=== PATIENT | male | born 1960 | race Caucasian/White ===

== ENCOUNTER 2020-10-09 06:29 | Outpatient (REF) | payer BC, SELFPAY ==
[2020-10-09 07:22] LABS: MANUAL DIFF FLAG NO
[2020-10-09 07:25] LABS: Basophils Absolute Auto 0.1 X10*3/uL (0.0-0.2); Basophils Percent Auto 0.8 % (0-2); Eosinophils Absolute Auto 0.3 X10*3/uL (0.0-0.4); Eosinophils Percent Auto 4.1 % (0-4); Hematocrit 44.9 % (42-52); Hemoglobin 15.1 g/dl (14.0-18.0); Imm Gran Abs Auto 0.02 X10*3/uL (0.00-0.03); Imm Gran Pct Auto 0.3 % (0.0-0.4); Lymphocytes Absolute Auto 2.6 X10*3/uL (1.2-4.9); Lymphocytes Percent Auto 40.6 % (20-40); Mean Corpuscular HGB Conc 33.6 g/dl (31.0-36.0); Mean Corpuscular Hemoglobin 31.4 pg (27.0-33.0); Mean Corpuscular Volume 93.3 fL (80-98); Mean Platelet Volume 10.2 fL (9.4-12.4); Monocytes Absolute Auto 0.4 X10*3/uL (0.1-1.2); Monocytes Percent Auto 5.9 % (2-11); Neutrophils Absolute Auto 3.1 X10*3/uL (2.0-8.3); Neutrophils Percent Auto 48.3 % (45-73); Platelet Count 182 X10*3/uL (160-400); Red Blood Count 4.81 X10*6/uL (4.60-5.80); Red Cell Distribution Width 12.6 % (11.0-16.0); White Blood Count 6.4 X10*3/uL (4.8-10.8)
[2020-10-09 07:53] LABS: Alanine Aminotransferase 31 U/L (0-40); Albumin Level 4.2 g/dL (3.5-5.0); Alkaline Phosphatase 58 U/L (39-117); Anion Gap 12 (12-20); Aspartate Amino Transferase 29 U/L (5-37); Bilirubin Total 1.4 mg/dL (0.0-1.0); Blood Urea Nitrogen 13 mg/dL (9-16); Calcium 8.7 mg/dL (8.4-10.2); Carbon Dioxide 26 mmol/L (22-29); Chloride 107 mmol/L (96-108); Cholesterol 116 mg/dL; Estimated Glomerular Filt Rate > 60; Glucose Fasting 90 mg/dL (60-99); HDL Cholesterol 39 mg/dL; LDL Cholesterol Calculated 55 mg/dl; Potassium 3.9 mmol/l (3.3-5.1); Sodium 141 mmol/L (135-145); Total Protein 6.5 g/dL (6.5-8.0); Triglycerides 111 mg/dL
[2020-10-09 08:14] LABS: Thyroid Stimulating Hormone 2.72 uIU/mL (0.32-4.0)
== END 2020-10-09 06:30 | disposition home or self-care (01) ==
LOC: HO.LAB 06:29
PROVIDERS: Visit Provider Internal Medicine
DX: R59.1 Generalized enlarged lymph nodes (principal); I25.10 Atherosclerotic heart disease of native coronary artery without angina pectoris; E78.00 Pure hypercholesterolemia, unspecified
CPT/HCPCS: 36415; 80053; 80061; 84443; 85025

== ENCOUNTER 2020-12-06 09:10 | Outpatient (REF) | payer BC, SELFPAY ==
--- NOTE | 2020-12-06 | US_ITS ---
EXAMINATION: MM DIAGNOSTIC DIGITAL BREAST TOMOSYNTHESIS, BILATERAL US BREAST, BILATERAL CLINICAL INFORMATION: Bilateral axillary swelling. COMPARISON: Mammography: None. TECHNIQUE: Digital breast tomosynthesis is performed in both the craniocaudal and mediolateral oblique views along with computer-aided detection (CAD). Synthesized 2D images are generated from the tomosynthesis. Ultrasound of the breasts is performed with real-time bill-scale imaging and color Doppler. FINDINGS: The breasts are almost entirely fatty (ACR BI-RADS breast composition Category a). There are no significant masses, abnormal calcifications, or other abnormalities. Bilateral targeted axillary ultrasound performed. No abnormal cystic or solid mass identified. No region of abnormal distal sound shadowing. Results are discussed with the patient at time of visit. US/US breast LT limited IMPRESSION: No specific mammographic or ultrasound findings to suggest malignancy. ASSESSMENT: BI-RADS 1: Negative. RECOMMENDATION: Clinical followup.
--- NOTE | 2020-12-06 | US_ITS ---
EXAMINATION: MM DIAGNOSTIC DIGITAL BREAST TOMOSYNTHESIS, BILATERAL US BREAST, BILATERAL CLINICAL INFORMATION: Bilateral axillary swelling. COMPARISON: Mammography: None. TECHNIQUE: Digital breast tomosynthesis is performed in both the craniocaudal and mediolateral oblique views along with computer-aided detection (CAD). Synthesized 2D images are generated from the tomosynthesis. Ultrasound of the breasts is performed with real-time bill-scale imaging and color Doppler. FINDINGS: The breasts are almost entirely fatty (ACR BI-RADS breast composition Category a). There are no significant masses, abnormal calcifications, or other abnormalities. Bilateral targeted axillary ultrasound performed. No abnormal cystic or solid mass identified. No region of abnormal distal sound shadowing. Results are discussed with the patient at time of visit. US/US breast RT limited IMPRESSION: No specific mammographic or ultrasound findings to suggest malignancy. ASSESSMENT: BI-RADS 1: Negative. RECOMMENDATION: Clinical followup.
--- NOTE | 2020-12-06 09:13 | MM_ITS ---
EXAMINATION: MM DIAGNOSTIC DIGITAL BREAST TOMOSYNTHESIS, BILATERAL US BREAST, BILATERAL CLINICAL INFORMATION: Bilateral axillary swelling. COMPARISON: Mammography: None. TECHNIQUE: Digital breast tomosynthesis is performed in both the craniocaudal and mediolateral oblique views along with computer-aided detection (CAD). Synthesized 2D images are generated from the tomosynthesis. Ultrasound of the breasts is performed with real-time bill-scale imaging and color Doppler. FINDINGS: The breasts are almost entirely fatty (ACR BI-RADS breast composition Category a). There are no significant masses, abnormal calcifications, or other abnormalities. Bilateral targeted axillary ultrasound performed. No abnormal cystic or solid mass identified. No region of abnormal distal sound shadowing. Results are discussed with the patient at time of visit. MM/MM tomosynthesis diagnostic BI IMPRESSION: No specific mammographic or ultrasound findings to suggest malignancy. ASSESSMENT: BI-RADS 1: Negative. RECOMMENDATION: Clinical followup.
== END 2020-12-06 09:11 | disposition home or self-care (01) ==
LOC: HO.MAMMO 09:10
PROVIDERS: PCP Internal Medicine; Visit Provider Internal Medicine
DX: M79.89 Other specified soft tissue disorders (principal)
CPT/HCPCS: 76642; 77062; 77066

== ENCOUNTER 2021-09-13 06:49 | Outpatient (REF) | payer BC, SELFPAY ==
[2021-09-13 06:55] LABS: MANUAL DIFF FLAG NO
[2021-09-13 07:36] LABS: Basophils Percent Auto 0.6 % (0-2); Eosinophils Absolute Auto 0.3 X10*3/uL (0.0-0.4); Eosinophils Percent Auto 4.1 % (0-4); Hemoglobin 15.9 g/dl (14.0-18.0); Imm Gran Abs Auto 0.04 X10*3/uL (0.00-0.03); Imm Gran Pct Auto 0.6 % (0.0-0.4); Lymphocytes Absolute Auto 2.9 X10*3/uL (1.2-4.9); Lymphocytes Percent Auto 40.1 % (20-40); Mean Corpuscular HGB Conc 33.8 g/dl (31.0-36.0); Mean Corpuscular Hemoglobin 31.7 pg (27.0-33.0); Mean Corpuscular Volume 93.8 fL (80-98); Mean Platelet Volume 10.1 fL (9.4-12.4); Monocytes Absolute Auto 0.4 X10*3/uL (0.1-1.2); Monocytes Percent Auto 5.3 % (2-11); Neutrophils Absolute Auto 3.5 X10*3/uL (2.0-8.3); Neutrophils Percent Auto 49.3 % (45-73); Platelet Count 199 X10*3/uL (160-400); Red Blood Count 5.01 X10*6/uL (4.60-5.80); Red Cell Distribution Width 12.9 % (11.0-16.0); White Blood Count 7.1 X10*3/uL (4.8-10.8)
[2021-09-13 08:03] LABS: Alanine Aminotransferase 32 U/L (0-40); Albumin Level 4.2 g/dL (3.5-5.0); Alkaline Phosphatase 65 U/L (39-117); Anion Gap 10 (12-20); Aspartate Amino Transferase 27 U/L (5-37); Bilirubin Total 1.3 mg/dL (0.0-1.0); Blood Urea Nitrogen 11 mg/dL (9-16); Calcium 9.2 mg/dL (8.4-10.2); Carbon Dioxide 29 mmol/L (22-29); Chloride 108 mmol/L (96-108); Cholesterol 135 mg/dL; Estimated Glomerular Filt Rate > 60; Glucose Fasting 105 mg/dL (60-99); HDL Cholesterol 42 mg/dL; LDL Cholesterol Calculated 66 mg/dl; Potassium 4.4 mmol/L (3.3-5.1); Sodium 143 mmol/L (135-145); Total Protein 6.6 g/dL (6.5-8.0); Triglycerides 137 mg/dL
[2021-09-13 08:30] LABS: Thyroid Stimulating Hormone 3.55 uIU/mL (0.32-4.0)
== END 2021-09-13 06:50 | disposition home or self-care (01) ==
LOC: HO.LAB 06:49
PROVIDERS: PCP Internal Medicine; Visit Provider Internal Medicine
DX: Z00.00 Encounter for general adult medical examination without abnormal findings (principal); Z12.5 Encounter for screening for malignant neoplasm of prostate; I25.10 Atherosclerotic heart disease of native coronary artery without angina pectoris; E78.00 Pure hypercholesterolemia, unspecified; N20.0 Calculus of kidney
CPT/HCPCS: 36415; 80053; 80061; 81003; 82306; 84153; 84154; 84443; 85025

== ENCOUNTER 2022-02-05 11:10 | Emergency (ER) | payer BC, SELFPAY ==
--- NOTE | ~2022-02-05 | XR_ITS ---
EXAMINATION: XR CHEST CLINICAL INFORMATION: Cough and Covid positive COMPARISON: Chest CT 05/14/2020. TECHNIQUE: Frontal view of the chest was obtained. FINDINGS: No significant abnormality is noted involving the heart, lungs, mediastinum, bony thorax or soft tissues. XR/XR chest 1V IMPRESSION: Unremarkable chest examination.
[2022-02-05 11:15] VITALS: BP 131/74; PULSE 56; RESP 19; TEMP 36.9; O2SAT 96; BMI 27.3
[2022-02-05 11:18] VITALS: BP 143/72; PULSE 53; RESP 19; TEMP 36.6; O2SAT 98
--- NOTE | 2022-02-05 11:31 | ED.GENADULT ---
HPI - General Adult General Chief complaint: Dyspnea Stated complaint: COVID+/SOB Time Seen by Provider: 02/05/22 11:31 Source: patient Mode of arrival: ambulatory Limitations: no limitations History of Present Illness HPI narrative: Sick starting Thursday with sore throat now intermittent cough, antigen test at home positive for COVID, now with chest tightness Onset (ago): day(s) Location: chest Radiation: non-radiation Severity: mild Quality: other (tightness) Pain Consistency: intermittent Exacerbating factors: none Associated symptoms: cough, fever/chills and other (sore throat) Related Data Home Medications Medication Instructions Recorded Confirmed aspirin 81 mg tablet 81 mg PO DAILY 11/02/20 11/02/20 atorvastatin 80 mg tablet (Lipitor) 80 mg PO DAILY 11/02/20 11/02/20 ezetimibe 10 mg tablet 1 tab PO DAILY 11/02/20 11/02/20 metoprolol succinate 100 mg 1 tab PO DAILY 11/02/20 11/02/20 tablet,extended release 24 hr omega-3 fatty acids-vitamin E cap 11/02/20 1,000 mg capsule Allergies Allergy/AdvReac Type Severity Reaction Status Date / Time Penicillins [PENICILLINS] Allergy Intermediate RASH Verified 12/04/20 08:48 PCN Allergy Unknown rash Uncoded 12/04/20 08:48 Review of Systems Constitutional: Constitutional: Reports no additional constitutional complaints Eyes: Eyes: Reports no additional eye complaints ENT: Denies dizziness Cardiovascular: Cardiovascular: Reports no additional cardiovascular complaints Respiratory: Respiratory: Reports as per HPI Gastrointestinal: Gastrointestinal: Reports no additional gastrointestinal complaints Musculoskeletal: Musculoskeletal: Reports no additional musculoskeletal complaints Integumentary/Breasts: Skin/Breast: Denies rash Neurologic: Reports system reviewed and no additional complaints, except as documented, Denies dizziness and Denies Sensory deficit (Neuro) Psychiatric: Psychiatric: Denies anxiety PMFSH Past Medical History Medical History Diverticulosis Hypercholesteremia Kidney stone Myocardial infarct Surgical History H/O angioplasty Family History Family History Mother AML (acute myeloblastic leukemia) Father Melanoma Heart attack Diabetes Social History Social History Alcohol intake: never Patient Tobacco Use Status: Former Tobacco user Cigarette Packs Per Day: 1 Cigarettes Per Day: 20.0 Use of substances other than those prescribed or required for medical reasons: No Advance Directives: No Advance Directives Information Provided: No 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 Physical Exam ED Vital Signs: Vital Signs - 24 hr 02/05/22 11:15 02/05/22 11:18 Temperature 98.5 F 97.9 F Pulse Rate 56 53 Respiratory Rate 19 19 Blood Pressure 131/74 143/72 H Pulse Oximetry 96 98 BMI result Body Mass Index 27.3 Const General: healthy appearing Nutritional Appearance: average body habitus Orientation/consciousness: oriented to person and patient oriented x3 Limitations: no limitations HENMT Head: Yes normal to inspection Ears: external ears normal General nose exam: Normal external nose present Mouth: Normal oral and palatal mucosa present and oropharynx normal Throat: Yes posterior oropharynx normal Eyes General: appearance normal, both eyes and all related structures Neck Neck: Yes normal visual inspection Chest Chest palpation & inspection: normal inspection of the chest Resp Auscultation: clear to auscultation bilaterally Cardio Jugular venous distension: no JVD Rate: regular rate Rhythm: regular rhythm Heart sounds: S1 normal heart sound present and S2 normal heart sound present GI Inspection: Yes normal to inspection Palpation (GI): Soft to palpation, nontender and No hepatosplenomegaly present Auscultation: normal bowel sounds General: Yes no CVA tenderness Back/Spine/Pelvis Back: no CVA tenderness Skin General skin exam: no rashes or lesions noted Neuro General: oriented to person and patient oriented x3 Cranial nerves: Yes CN's II-XII intact bilaterally Motor exam (neuro): 5/5 motor strength present throughout Sensory Exam: No Sensory deficit (Neuro) Extrem General: Yes normal to inspection Psych Appearance: grossly normal Course Reevaluation(s) Reevaluation #1: labs and EKG normal, CXR normal, no evidence of cardiac ischemia or PE Time: 12:36 Medical Decision Making Lab Data Result diagrams: 02/05/22 11:59 02/05/22 11:59 Labs: Lab Results 02/05/22 02/05/22 02/05/22 Range/Units 11:59 11:59 11:59 WBC 5.7 (4.8-10.8) X10*3/uL RBC 4.84 (4.60-5.80) X10*6/uL Hgb 15.2 (14.0-18.0) g/dl Hct 45.3 (42.0-52.0) % MCV 93.6 (80.0-98.0) fL MCH 31.4 (27.0-33.0) pg MCHC 33.6 (31.0-36.0) g/dl RDW 12.8 (11.0-16.0) % Plt Count 143 L (160-400) X10*3/uL MPV 9.6 (9.4-12.4) fL Immature Gran % (Auto) 0.2 (0.0-0.4) % Neut % (Auto) 45.2 (45-73) % Lymph % (Auto) 40.7 H (20-40) % [place] % (Auto) 12.6 H (2-11) % Eos % (Auto) 0.9 (0-4) % Baso % (Auto) 0.4 (0-2) % Lymph # (Auto) 2.3 (1.2-4.9) X10*3/uL [place] # (Auto) 0.7 (0.1-1.2) X10*3/uL Eos # (Auto) 0.1 (0.0-0.4) X10*3/uL Baso # (Auto) 0.0 (0.0-0.2) X10*3/uL Abs Immat Gran (auto) 0.01 (0.00-0.03) X10*3/uL Absolute Neuts (auto) 2.6 (2.0-8.3) x10*3/uL Absolute Nucleated RBC 0.000 (0.0-0.012) X10*3/uL Nucleated RBC % (auto) 0.0 (0.0-0.2) /100WBC D-Dimer High Sensitivty < 150 NG/ML Sodium 141 (135-145) mmol/L Potassium 4.1 (3.3-5.1) mmol/L Chloride 106 (96-108) mmol/L Carbon Dioxide 27 (22-29) mmol/L Anion Gap 12 (12-20) BUN 9 (9-16) mg/dL Creatinine 0.86 (0.5-1.4) mg/dL Estim Creat Clear Calc 87.2 Estimated GFR > 60 Random Glucose 91 (60-115) mg/dL Calcium 9.0 (8.4-10.2) mg/dL Imaging Data Chest x-ray: Radiologist's impression: IMPRESSION: Unremarkable chest examination. ? ECG Data Attestation: I personally reviewed and interpreted this ECG as follows: Interpretation: sinus rate 50, old inferior wall, no st or twave changes Discharge Plan Discharge Clinical Impression: COVID-19 Patient Disposition: Home, Self-Care Instructions: COVID-19 (Coronavirus Disease 2019) (ED) Prescriptions: No Action atorvastatin [Lipitor] 80 mg Tablet 80 mg PO DAILY 0RF metoprolol succinate 100 mg tablet extended release 24 hr 1 tab PO DAILY 0RF aspirin 81 mg Tablet 81 mg PO DAILY 0RF ezetimibe 10 mg tablet 1 tab PO DAILY 0RF Fish Oil 1,000 mg Capsule 0RF Referrals: Leon Rogers MD, DO [Primary Care Provider] - 1 week
--- NOTE | 2022-02-05 11:34 | ECG_ITS ---
Test Reason : chest tightness Blood Pressure : / mmHG Vent. Rate : 050 BPM Atrial Rate : 050 BPM P-R Int : 160 ms QRS Dur : 092 ms QT Int : 426 ms P-R-T Axes : 033 -13 025 degrees QTc Int : 388 ms Sinus bradycardia Inferior infarct (cited on or before 17-MAY-2002) Abnormal ECG When compared with ECG of 24-DEC-2012 06:30, No significant change was found Referred By: All Villanueva Electronically Signed By:ARMANDO MARTINEZ MD
[2022-02-05 12:06] LABS: MANUAL DIFF FLAG NO
[2022-02-05 12:07] LABS: Basophils Percent Auto 0.4 % (0-2); Eosinophils Absolute Auto 0.1 X10*3/uL (0.0-0.4); Eosinophils Percent Auto 0.9 % (0-4); Hematocrit 45.3 % (42.0-52.0); Hemoglobin 15.2 g/dl (14.0-18.0); Imm Gran Abs Auto 0.01 X10*3/uL (0.00-0.03); Imm Gran Pct Auto 0.2 % (0.0-0.4); Lymphocytes Absolute Auto 2.3 X10*3/uL (1.2-4.9); Lymphocytes Percent Auto 40.7 % (20-40); Mean Corpuscular HGB Conc 33.6 g/dl (31.0-36.0); Mean Corpuscular Hemoglobin 31.4 pg (27.0-33.0); Mean Corpuscular Volume 93.6 fL (80.0-98.0); Mean Platelet Volume 9.6 fL (9.4-12.4); Monocytes Absolute Auto 0.7 X10*3/uL (0.1-1.2); Monocytes Percent Auto 12.6 % (2-11); Neutrophils Absolute Auto 2.6 x10*3/uL (2.0-8.3); Neutrophils Percent Auto 45.2 % (45-73); Platelet Count 143 X10*3/uL (160-400); Red Blood Count 4.84 X10*6/uL (4.60-5.80); Red Cell Distribution Width 12.8 % (11.0-16.0); White Blood Count 5.7 X10*3/uL (4.8-10.8)
[2022-02-05 12:19] LABS: D Dimer High Sensitivity < 150 NG/ML
[2022-02-05 12:24] LABS: Anion Gap 12 (12-20); Blood Urea Nitrogen 9 mg/dL (9-16); Carbon Dioxide 27 mmol/L (22-29); Chloride 106 mmol/L (96-108); Creatinine Clr Calc Pharmacy 87.2; Estimated Glomerular Filt Rate > 60; Glucose Random 91 mg/dL (60-115); Potassium 4.1 mmol/L (3.3-5.1); Sodium 141 mmol/L (135-145)
[2022-02-05 12:31] LABS: Troponin-I High Sensitivity < 3.5 ng/L (<3.5-35.0)
== END 2022-02-05 13:16 | disposition home or self-care (01) ==
PROVIDERS: Emergency Provider Emergency Medicine; PCP Internal Medicine
DX: U07.1 COVID-19 (principal); R06.02 Shortness of breath; R07.89 Other chest pain; Z87.891 Personal history of nicotine dependence; Z79.899 Other long term (current) drug therapy
CPT/HCPCS: 36415; 71045; 80048; 84484; 85025; 85379; 93005; 99283; 99284

== ENCOUNTER 2023-10-19 06:17 | Day surgery (SDC) | payer BC, SELFPAY ==
--- NOTE | 2023-10-16 08:42 | HO.ANESPROP2 ---
Documented by User: Jessica Mehta NP 10/16/23 08:42 HPI - Anesthesia Eval Consult details Narrative: 63yo M for Colonoscopy Remote hx HI (2001) PMFSH Active Problems Active Problems: All Active Problems (Updated 02/05/22 @ 12:38 by All Villanueva MD) COVID-19 (Acute) Axillary swelling (Chronic) Past Medical History Medical History Kidney stone Hypercholesteremia Diverticulosis Myocardial infarct Family History Family History Mother AML (acute myeloblastic leukemia) Father Melanoma Heart attack Diabetes Surgical History Surgical History H/O angioplasty Social History Social History Alcohol intake: never Patient Tobacco Use Status: Former Tobacco user Cigarette Packs Per Day: 1 Cigarettes Per Day: 20.0 Advance Directives: No Advance Directives Information Provided: Yes 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 Meds Allergies Allergy/AdvReac Type Severity Reaction Status Date / Time Penicillins [PENICILLINS] Allergy Intermediate RASH Verified 12/04/20 08:48 PCN Allergy Unknown rash Uncoded 12/04/20 08:48 Home Medications Medication Instructions Recorded Confirmed Last Taken Type aspirin 81 mg tablet 81 mg PO DAILY 11/02/20 11/02/20 Unknown History atorvastatin 80 mg tablet (Lipitor) 80 mg PO DAILY 11/02/20 11/02/20 Unknown History ezetimibe 10 mg tablet 1 tab PO DAILY 11/02/20 11/02/20 Unknown History metoprolol succinate 100 mg 1 tab PO DAILY 11/02/20 11/02/20 Unknown History tablet,extended release 24 hr omega-3 fatty acids-vitamin E cap 11/02/20 Unknown History 1,000 mg capsule Assessment and Plan Assessment Anesthesia Assessment: Chart Reviewed Documented by User: Deb Mena MD 10/19/23 07:34 [facility] Active Problems Active Problems: All Active Problems (Updated 10/19/23 @ 12:38 by Ronan Mena MD) H/o COVID-19 (Acute) Axillary swelling (Chronic) H/o [place] 2001. 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 Meds Allergies Allergy/AdvReac Type Severity Reaction Status Date / Time Penicillins [PENICILLINS] Allergy Intermediate RASH Verified 12/04/20 08:48 PCN Allergy Unknown rash Uncoded 12/04/20 08:48 Home Medications Medication Instructions Recorded Confirmed Last Taken Type aspirin 81 mg tablet 81 mg PO DAILY 11/02/20 11/02/20 Unknown History atorvastatin 80 mg tablet (Lipitor) 80 mg PO DAILY 11/02/20 11/02/20 Unknown History ezetimibe 10 mg tablet 1 tab PO DAILY 11/02/20 11/02/20 Unknown History metoprolol succinate 100 mg 1 tab PO DAILY 11/02/20 11/02/20 Unknown History tablet,extended release 24 hr omega-3 fatty acids-vitamin E cap 11/02/20 Unknown History 1,000 mg capsule Exam Height,Weight and Vital Signs: Height 5 ft 7 in Weight 74.389 kg Vital Signs Temp Pulse Resp BP Pulse Ox O2 Del Method 10/19/23 06:55 97.3 F 71 16 129/80 95 Room Air Airway Mallampati Class: II TM Dist: >3cm Neck ROM: Full Loose/Missing/Broken Teeth: No (Denies broken, loose, missing teeth) Heart: RRR Lungs: CTAB Assessment and Plan Assessment Anesthesia Assessment: Anesthesia Plan Discussed Final Anesthetic Review Family History of Problems with Anesthesia: No History of Problems with Anesthesia: No NPO: Yes ASA Class: III Final Preanesthetic Review: No Changes in Pt Med Stat, Meds/Allgs Chart Reviewed, Consent Obtained/Reviewed and Anes Risks/Benef Reviewed Patient Risk: Low Procedure Risk: Low Assessment/Block/Sedation in SS: Assess/Block/Sedation-SS Anesthetic Plan Anesthetic Plan: MAC: Disposition: Standard PACU
[2023-10-19 06:55] VITALS: BP 129/80; PULSE 71; RESP 16; TEMP 36.3; O2SAT 95; BMI 25.7
[2023-10-19] MEDS: Lactated Ringers 1,000 ML 100 ML IVCONT (06:57)
[2023-10-19 08:23] VITALS: BP 84/60; PULSE 83; RESP 16; TEMP 36.3; O2SAT 95
--- NOTE | 2023-10-19 08:28 | P.BOP_ITS ---
Brief Operative Note Date of Service: 10/19/23 Pre-op diagnosis: Screening Post-op diagnosis: other (Diverticulosis) Procedure: Colonoscopy to the cecum Surgeon: Leon Bernal MD Anesthesia: MAC Was an Television Newsc[employer] Director used for this Procedure?: No Estimated blood loss (mL): 0 Pathology: none sent Condition: stable Disposition: PACU
[2023-10-19 08:32] VITALS: BP 87/63
[2023-10-19 08:38] VITALS: BP 112/66; PULSE 69; RESP 18; O2SAT 97
[2023-10-19 08:53] VITALS: BP 110/68; PULSE 55; RESP 18; TEMP 36.7; O2SAT 98
[2023-10-19 09:04] VITALS: PULSE 58
--- NOTE | 2023-10-19 09:44 | OP_ITS ---
DATE OF SERVICE: 10/19/2023 SURGEON: Leon Bernal MD INDICATIONS: The patient presents for evaluation of colorectal cancer screening. Full consent has been obtained from him for this, including risks of bleeding and perforation. PREOPERATIVE DIAGNOSIS: Colorectal cancer screening. POSTOPERATIVE DIAGNOSIS: Colorectal cancer screening, diverticulosis, internal hemorrhoids. PROCEDURE PERFORMED: Colonoscopy to the cecum. ESTIMATED BLOOD LOSS: COMPLICATIONS: ANESTHESIA: Monitored anesthesia care. ASSISTANTS: SPECIMENS: DESCRIPTION OF PROCEDURE: The patient was placed in the left lateral decubitus position. The digital rectal exam revealed no abnormalities. The Olympus video pediatric colonoscope was entered into the rectum and advanced easily to the cecum. Once in the cecum, I did identify normal-appearing cecal pouch with appendiceal orifice and a normal-appearing ileocecal valve. There was transillumination of light deep in the right lower quadrant. The entire cecum was well visualized and appeared normal. The scope was then slowly withdrawn, assessing all mucosal surfaces carefully. For the most part, preparation was excellent, although in the sigmoid colon and rectum, were some areas of solid stool, which had to be irrigated and moved away to visualize things as best as possible. I did not visualize any sign of polyps, colitis, or angiodysplasia. There was a diffuse diverticulosis ranging from the distal sigmoid colon all the way to the proximal ascending colon, with most of the diverticula in the sigmoid colon. In the rectum, scope was retroflexed, visualizing some small internal hemorrhoids, but no other pathology. The rectal mucosa appeared normal. The scope was straightened and withdrawn from the patient. He tolerated the procedure well and was returned to the recovery area in stable condition. IMPRESSION: 1. Diverticulosis. 2. Internal hemorrhoids. PLAN: Given today's negative exam, I would recommend a followup coloscopy in 10 years. He was advised to resume his aspirin and fish oil today. He will otherwise see me on a p.r.n. basis. MD JASBIR Snell/MARI / [id number]
== END 2023-10-19 09:25 | disposition home or self-care (01) ==
PROVIDERS: PCP Nurse Practitioner Family; Visit Provider Internal Medicine
PROC: 0DJD8ZZ Inspection of Lower Intestinal Tract, Via Natural or Artificial Opening Endoscopic (ICD-10-PCS; CPT 45378; principal; 2023-10-19 07:30)
DX: Z12.11 Encounter for screening for malignant neoplasm of colon (principal); K57.30 Diverticulosis of large intestine without perforation or abscess without bleeding; K64.8 Other hemorrhoids; E78.00 Pure hypercholesterolemia, unspecified; Z87.442 Personal history of urinary calculi; I25.2 Old myocardial infarction; Z87.891 Personal history of nicotine dependence; Z79.899 Other long term (current) drug therapy; Z79.82 Long term (current) use of aspirin
CPT/HCPCS: 45378; J2704

== ENCOUNTER → 2024-07-13 14:54 | Outpatient (RCR) | payer BC, SELFPAY ==
[2020-11-02 14:19] VITALS: BP 136/75; PULSE 58; RESP 18; TEMP 36.6; O2SAT 96; BMI 28.0
--- NOTE | 2020-11-02 15:00 | P.CNHO_ITS ---
Subjective - Subjective Chief complaint: Bilateral axillary swelling Consult date: 11/02/20 Requesting Physician: Dr. Leon Rogers Primary Care Provider: Leon Rogers MD, DO HPI - Consult Narrative Reason for consult: Bilateral axillary swelling Narrative: Leon Thakkar is a 60 year old male who has been referred for evaluation of bilateral swelling in his armpits. He states that he noticed a ball like sensation more so in his right axilla which is ongoing since spring. He underwent imaging with CT chest/abdomen and pelvis in April 2020 which did not show lymphadenopathy or any suspicious pathology. The only complaint patient has is that sensation of fullness in both his axillar right greater than left and occasional burning sensation going down his right arm. He also notices a ball like sensation behind his right knee that seems to come and go. He denies any constitutional symptoms such as fever, chills, night sweats, loss of appetite or weight loss. He is able to function and work/exercise like before. He felt in early spring he had symptoms of chest congestion and thinks he may have had COVID-19 infection. He was tested for SARS-CoV-2 antibodies in April and was negative. He has never been diagnosed with any cancer, his mother is being treated for AML. She has been in remission for 8 years. Review of Systems - Constitutional Reports no additional constitutional complaints - Cardiovascular Reports no additional cardiovascular complaints - Respiratory Reports no additional respiratory complaints - Gastrointestinal Reports no additional gastrointestinal complaints - Musculoskeletal Reports no additional musculoskeletal complaints, Reports back pain, Denies neck pain - Integumentary/Breasts Skin/Breast: Reports no additional skin complaints Oncology Screenings - ECOG Performance Status ECOG Performance Status: 0 [facility] Medical History: Medical History (Last Updated 11/02/20 @ 14:23 by Josee Fairchild RN) Diverticulosis Hypercholesteremia Kidney stone Myocardial infarct Surgical History: Surgical History (Last Updated 11/02/20 @ 14:23 by Josee Fairchild RN) H/O angioplasty Smoking status: Former smoker 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 Home Medications and Allergies Home Medications Medication Instructions Recorded Confirmed Type aspirin 81 mg PO DAILY 11/02/20 11/02/20 History atorvastatin [Lipitor] 80 mg PO DAILY 11/02/20 11/02/20 History ezetimibe 1 tab PO DAILY 11/02/20 11/02/20 History metoprolol succinate 1 tab PO DAILY 11/02/20 11/02/20 History omega-3 fatty acids-vitamin E cap 11/02/20 History [Fish Oil] Allergies Allergy/AdvReac Type Severity Reaction Status Date / Time Penicillins [PENICILLINS] Allergy Intermediate RASH Verified 11/02/20 14:23 PCN Allergy Unknown rash Uncoded 01/20/13 00:00 Physical Exam Vital signs: Vital Signs Temp 97.8 F 11/02/20 14:19 Pulse 58 11/02/20 14:19 Resp 18 11/02/20 14:19 BP 136/75 11/02/20 14:19 Pulse Ox 96 11/02/20 14:19 Intake & Output 11/01/20 11/02/20 11/02/20 18:59 06:59 18:59 Other: Weight 81.3 kg Weight 81.3 kg - Constitutional Present: no acute distress, average body habitus - Routine HEENT Exam Head: Present: normal inspection Eye: Present: EOMI, PERRL - Routine Neck Exam Present: supple, full ROM. Absent: lymphadenopathy - Routine Chest/Breast/Axilla Exam Breast: Present: Normal Exam Comments: Right axilla, small, mobile, soft lump palpable - Routine Respiratory Exam Present: CTAB. Absent: respiratory distress, rhonchi, wheezes - Routine Cardiovascular Exam Cardiovascular: Present: RRR, S1, S2 - Routine Abdominal Exam Present: soft. Absent: organomegaly - Routine Extremities Exam Present: normal inspection, pulses intact - Routine Skin Exam Present: intact. Absent: cyanosis, erythema Assessment and Plan (1) Axillary swelling Status: Chronic This is a pleasant 60 old male with symptoms of swelling in both his armpits, right worse than left. He has a sensation of a ball under his armpit and occasional burning sensation radiating down his right arm. He denies any neck pain or constitutional symptoms. He had a CT chest/abdomen pelvis which did not show any lymphadenopathy. On examination today he did have a soft, mobile swelling deep in the right axilla. Lymph node versus fatty tissue. I have ordered ultrasound of the axilla and possible biopsy if there is lymph node enlargement. Blood work today LDH, normal vitamin B12/folate levels and normal serum electrophoresis/serum immunofixation. Further recommendations based on ultrasound examination. I thank you for this referral.
[2020-11-02 15:34] LABS: Lactate Dehydrogenase 164 U/L (118-273)
--- NOTE | 2020-11-02 16:00 | MHC.HEMONC ---
Patient here for consult. Clincial summary updated with nurse. Provider seen patient. Ultrasound put into Social Workers box.
[2020-11-02 16:09] LABS: Folate 18.4 ng/mL (> or = 4.0); Vitamin B12 537 pg/mL (200-900)
[2020-11-04 14:32] LABS: Prot Elec - Alpha1 0.3 g/dL (0.2-0.3); Prot Elec - Alpha2 0.6 g/dL (0.5-0.9); Prot Elec - Beta 1 0.4 g/dL (0.4-0.6); Prot Elec - Beta 2 0.3 g/dL (0.2-0.5); Prot Elec - Gamma 0.8 g/dL (0.8-1.7); Prot Elec - Total Protein 6.3 g/dL (6.1-8.1)
[2020-11-05 13:17] LABS: IgA 183 mg/dL (47-310); IgG 819 mg/dL (600-1640); IgM 62 mg/dL (50-300)
--- NOTE | 2020-11-05 13:20 | MHC.HEMONCSW ---
US EXTREMITY PLACED IN O.F. THEY WILL SCHEDULE PATIENT.
[2020-12-04 08:37] VITALS: BP 131/75; PULSE 52; RESP 18; TEMP 36.7; O2SAT 97; BMI 28.0
--- NOTE | 2020-12-04 08:55 | PM.HEMONCPN ---
Medical Summary - Medical Summary Date of Service: 12/04/20 Chief complaint: Follow-up Medical Summary: Diagnosis: Bilateral axillary swelling right greater than left CT chest/abdomen and pelvis in April 2020 which did not show lymphadenopathy or any suspicious pathology. COVID-19 test negative. Normal LDH, normal serum protein electrophoresis and immunofixation. Interval History Interval history: Patient is here in follow-up. He feels about the same and has no complaints today. He is here to discuss results of blood work. He has not yet had imaging study. He is doing well and reports no increase in size of axillary swelling. He still has the same sensation. He denies fever, chills, night sweats, loss of appetite or fatigue. Review of Systems - Constitutional Reports no additional constitutional complaints [facility] Medical History: Medical History (Last Updated 11/02/20 @ 14:23 by Josee Fiarchild RN) Diverticulosis Hypercholesteremia Kidney stone Myocardial infarct Surgical History: Surgical History (Last Updated 11/02/20 @ 14:23 by Josee Fairchild RN) H/O angioplasty Smoking status: Former smoker Home Medications and Allergies Home Medications Medication Instructions Recorded Confirmed Type aspirin 81 mg PO DAILY 11/02/20 11/02/20 History atorvastatin [Lipitor] 80 mg PO DAILY 11/02/20 11/02/20 History ezetimibe 1 tab PO DAILY 11/02/20 11/02/20 History metoprolol succinate 1 tab PO DAILY 11/02/20 11/02/20 History omega-3 fatty acids-vitamin E cap 11/02/20 History [Fish Oil] Allergies Allergy/AdvReac Type Severity Reaction Status Date / Time Penicillins [PENICILLINS] Allergy Intermediate RASH Verified 12/04/20 08:48 PCN Allergy Unknown rash Uncoded 12/04/20 08:48 Exam Vital signs: Vital Signs Temp 98.1 F 12/04/20 08:37 Pulse 52 12/04/20 08:37 Resp 18 12/04/20 08:37 BP 131/75 12/04/20 08:37 Pulse Ox 97 12/04/20 08:37 Intake & Output 12/03/20 12/04/20 12/04/20 18:59 06:59 18:59 Other: Weight 81.4 kg Weight 81.4 kg Body Mass Index 28.0 - Constitutional Present: no acute distress, average body habitus - Routine HEENT Exam Head: Present: normal inspection - Routine Respiratory Exam Present: CTAB. Absent: respiratory distress, rhonchi, wheezes - Routine Cardiovascular Exam Cardiovascular: Present: RRR, S1, S2 - Routine Abdominal Exam Present: soft. Absent: organomegaly - Routine Extremities Exam Present: normal inspection, pulses intact - Routine Skin Exam Present: intact. Absent: cyanosis, erythema Data - Labs Labs: 11/02/20 15:00 Immunofixation Pnl, Serum Routine Lactate Dehydrogenase Routine Protein Electrophoresis, Serum Routine Vitamin B12 and Folate Routine Laboratory Last Values Lactate Dehydrogenase 164 U/L (118-273) 11/02/20 15:00 Total Protein (PEP) 6.3 g/dL (6.1-8.1) 11/02/20 15:00 Albumin (PEP) 4.0 g/dL (3.8-4.8) 11/02/20 15:00 Zxmyy-1-Vrvjdtxdc 0.3 g/dL (0.2-0.3) 11/02/20 15:00 Hvdxi-5-Lzwcltuzy 0.6 g/dL (0.5-0.9) 11/02/20 15:00 Yqxz-8-Zcmqaskn 0.4 g/dL (0.4-0.6) 11/02/20 15:00 Uyys-0-Pkqevgxr 0.3 g/dL (0.2-0.5) 11/02/20 15:00 Gamma Globulins 0.8 g/dL (0.8-1.7) 11/02/20 15:00 Abnorm Protein Band 1 TNP 11/02/20 15:00 Abnorm Protein Band 2 TNP 11/02/20 15:00 Abnorm Protein Band 3 TNP 11/02/20 15:00 PEP Interpretation SEE NOTE 11/02/20 15:00 Vitamin B12 537 pg/mL (200-900) 11/02/20 15:00 Folate 18.4 ng/mL (> or = 4.0) 11/02/20 15:00 IgG Total 819 mg/dL (600-1640) 11/02/20 15:00 IgA Total 183 mg/dL (47-310) 11/02/20 15:00 IgM 62 mg/dL (50-300) 11/02/20 15:00 SUDARSHAN Interpretation SEE NOTE 11/02/20 15:00 Progress Note: A/P (1) Axillary swelling Status: Chronic Assessment and plan: This is a pleasant 60 old male with symptoms of swelling in both his armpits, right worse than left. CT chest/abdomen/pelvis negative for lymphadenopathy. Normal LDH, normal vitamin B12, folic acid levels, serum protein electrophoresis and immunofixation. He is awaiting ultrasound/diagnostic mammogram to be performed. If positive for lymph nodes, biopsy will be performed. Results of blood tests explained to patient. - Time Spent With Patient Total time spent is greater than 50% in coordination of care (as documented) at patient's floor/unit and/or counseling patient: 15 - 24 minutes
--- NOTE | 2020-12-04 09:34 | MHC.HEMONC ---
Exam, bilaterl breast u/s and diagnostic kelli orders entered into O.F. by Rena Ahumada aware. Patient to be called from [facility] for scheduling.
--- NOTE | 2021-01-08 13:01 | P.PNHO_ITS ---
[facility] Telehealth - Telehealth Location of Provider rendering services: office Location of Patient: home Patient Identification confirmed using: Name, : Yes Telehealth Method: telephone Patient verbally consented to treatment: Yes Medical Summary - Medical Summary Date of Service: 01/08/21 Chief complaint: follow-up Medical Summary: Diagnosis: Bilateral axillary swelling right greater than left CT chest/abdomen and pelvis in April 2020 which did not show lymphadenopathy or any suspicious pathology. COVID-19 test negative. Normal LDH, normal serum protein electrophoresis and immunofixation. Interval History Interval history: This is scheduled follow-up for patient, tele visit consented because of COVID- 19 pandemic guidelines. Today's discussion was based on recent imaging study, bilateral mammogram and ultrasound. He is otherwise doing well and has no new complaints. Home Medications and Allergies Home Medications Medication Instructions Recorded Confirmed Type aspirin 81 mg PO DAILY 11/02/20 11/02/20 History atorvastatin [Lipitor] 80 mg PO DAILY 11/02/20 11/02/20 History ezetimibe 1 tab PO DAILY 11/02/20 11/02/20 History metoprolol succinate 1 tab PO DAILY 11/02/20 11/02/20 History omega-3 fatty acids-vitamin E cap 11/02/20 History [Fish Oil] Allergies Allergy/AdvReac Type Severity Reaction Status Date / Time Penicillins [PENICILLINS] Allergy Intermediate RASH Verified 12/04/20 08:48 PCN Allergy Unknown rash Uncoded 12/04/20 08:48 Exam Vital signs: Vital Signs Temp 98.1 F 12/04/20 08:37 Pulse 52 12/04/20 08:37 Resp 18 12/04/20 08:37 BP 131/75 12/04/20 08:37 Pulse Ox 97 12/04/20 08:37 Weight 81.4 kg Body Mass Index 28.0 - Constitutional Present: no acute distress, average body habitus - Routine HEENT Exam Head: Present: normal inspection - Routine Respiratory Exam Present: CTAB. Absent: respiratory distress, rhonchi, wheezes - Routine Cardiovascular Exam Cardiovascular: Present: RRR, S1, S2 - Routine Abdominal Exam Present: soft. Absent: organomegaly - Routine Extremities Exam Present: normal inspection, pulses intact - Routine Skin Exam Present: intact. Absent: cyanosis, erythema Data - Labs Labs: 11/02/20 15:00 Immunofixation Pnl, Serum Routine Lactate Dehydrogenase Routine Protein Electrophoresis, Serum Routine Vitamin B12 and Folate Routine Laboratory Last Values Lactate Dehydrogenase 164 U/L (118-273) 11/02/20 15:00 Total Protein (PEP) 6.3 g/dL (6.1-8.1) 11/02/20 15:00 Albumin (PEP) 4.0 g/dL (3.8-4.8) 11/02/20 15:00 Ffkzs-6-Pvlmvvmxf 0.3 g/dL (0.2-0.3) 11/02/20 15:00 Uaggu-2-Bygtjnodq 0.6 g/dL (0.5-0.9) 11/02/20 15:00 Fble-1-Jvqhbqqu 0.4 g/dL (0.4-0.6) 11/02/20 15:00 Ctib-7-Cpbbqmbd 0.3 g/dL (0.2-0.5) 11/02/20 15:00 Gamma Globulins 0.8 g/dL (0.8-1.7) 11/02/20 15:00 Abnorm Protein Band 1 TNP 11/02/20 15:00 Abnorm Protein Band 2 TNP 11/02/20 15:00 Abnorm Protein Band 3 TNP 11/02/20 15:00 PEP Interpretation SEE NOTE 11/02/20 15:00 Vitamin B12 537 pg/mL (200-900) 11/02/20 15:00 Folate 18.4 ng/mL (> or = 4.0) 11/02/20 15:00 IgG Total 819 mg/dL (600-1640) 11/02/20 15:00 IgA Total 183 mg/dL (47-310) 11/02/20 15:00 IgM 62 mg/dL (50-300) 11/02/20 15:00 SUDARSHAN Interpretation SEE NOTE 11/02/20 15:00 Progress Note: A/P (1) Axillary swelling Status: Chronic Assessment and plan: This is a pleasant 60 old male with symptoms of swelling in both his armpits, right worse than left. CT chest/abdomen/pelvis negative for lymphadenopathy. Normal LDH, normal vitamin B12, folic acid levels, serum protein electrophoresis and immunofixation. He had ultrasound/diagnostic mammogram in December 2019 which was negative for any suspicious masses or lymphadenopathy. I have explained results to patient. No further intervention necessary. - Time Spent With Patient Total time spent is greater than 50% in coordination of care (as documented) at patient's floor/unit and/or counseling patient: less than 15 minutes
--- NOTE | 2021-01-08 14:48 | MHC.HEMONCMA ---
Patient had telehealth today, he states he was doing well. Allergies and medications were reviewed and updated. HE will come in 6 months.
== END | disposition home or self-care (01) ==
LOC: HO.ONC 11-02 13:49
PROVIDERS: PCP Internal Medicine; Referring Provider Internal Medicine; Visit Provider Internal Medicine
DX: R22.33 Localized swelling, mass and lump, upper limb, bilateral (principal)
CPT/HCPCS: 36415; 82607; 82746; 82784; 83615; 84155; 84165; 86334; 99204; 99213